=== PATIENT | male | born 1945 | race Caucasian/White ===

== ENCOUNTER 2021-02-19 07:19 | Day surgery (SDC) | payer OTHER, BC ==
[2021-02-18 11:18] VITALS: BMI 29.8
[2021-02-19] MEDS ORDERED: CIPROFLOXACIN 0.3% EYE DROPS 5 ML BOTTLE ONE (07:29)
[2021-02-19] MEDS ORDERED: CYCLOPENTOLATE 2% OPHTH SOLN 2 ML BOTTLE ONE (07:29)
[2021-02-19] MEDS ORDERED: TROPICAMIDE 1% OPHTH SOLN 15 ML BOTTLE ONE (07:29)
[2021-02-19] MEDS ORDERED: PHENYLEPHRINE 2.5% OPHTH SOLN 15 ML BOTTLE ONE (07:29)
[2021-02-19] MEDS ORDERED: MIDAZOLAM HCL 2 MG/2 ML SINGLE DOSE VIAL ONE ×2 (07:41→08:39)
[2021-02-19] MEDS ORDERED: TETRACAINE 0.5% OPHTH SOLN 2 ML BOTTLE ONE (08:43)
[2021-02-19] MEDS ORDERED: NEO/POLYMYX B SULF/DEXAMETH OPHTHALMIC 5ML BOTTLE ONE (08:43)
[2021-02-19] MEDS ORDERED: LIDOCAINE 1% P/F 10 MG/ML VIAL ONE (08:43)
[2021-02-19] MEDS ORDERED: CARBACHOL 0.01% INTRA-OCULAR 1.5 ML VIAL ONE (08:43)
[2021-02-19] MEDS ORDERED: BSS (NA/CA/MG/K) BALANCED SALT SOLUTION OPHTH SOLN 15 ML BOTTLE ONE (08:43)
[2021-02-19 09:30] VITALS: TEMP 98
[2021-02-19 09:46] VITALS: PULSE 71
[2021-02-19 09:48] VITALS: BP 116/72
== END 2021-02-19 10:20 | disposition home or self-care (01) ==
LOC: FASU 07:19
PROVIDERS: ATTEND Ophthalmology
PROC: 08RK3JZ Replacement of Left Lens with Synthetic Substitute, Percutaneous Approach (ICD-10-PCS; principal; 2021-02-19 09:03)
DX: H26.8 Other specified cataract (principal)

== ENCOUNTER 2022-09-17 17:05 | Observation (INO) | payer BC, OTHER ==
[2022-09-17] MEDS ORDERED: methylPREDNISolone NA SUCC 125 MG/2 ML VIAL IVPUSH ONE (18:06)
[2022-09-17] MEDS: ALBUTEROL SO4 2.5/IPRATROPIUM 0.5 INH SOL 3 ML VIAL.NEB. NEB SCH ×3 (18:30→19:01)
[2022-09-17] MEDS ORDERED: ALBUTEROL SO4 2.5/IPRATROPIUM 0.5 INH SOL 3 ML VIAL.NEB. NEB ONE (18:31)
[2022-09-17] MEDS ORDERED: methylPREDNISolone NA SUCC 125 MG/2 ML VIAL ONE (18:31)
[2022-09-17 18:39] LABS: VENOUS BASE EXCESS 3.7 mmol/L (-2-2); VENOUS PCO2 49.1 mmHg (38-52); VENOUS PH 7.399 (7.310-7.410)
[2022-09-17 18:47] LABS: BASO % 0.7 % (0-2.0); EOS % 1.4 % (0-4.5); HEMATOCRIT 47.9 % (35.4-49); HEMOGLOBIN 16.3 GM/dL (11.7-16.9); LYMPH % 16.2 % (8-40); MCH 30.6 pg (25.7-33.7); MCHC 34.1 g/dl (32.0-35.9); MEAN CELL VOLUME 89.7 fl (80-96); MEAN PLT VOLUME 8.3 fl (7.5-11.1); MONO % 7.5 % (3.8-10.2); NEUT % 74.2 % (42.8-82.8); PLATELET COUNT 186 10^3/uL (134-434); RBC 5.34 M/mm3 (4.00-5.60); RDW 14.6 % (11.9-15.9); WHITE BLOOD COUNT 9.5 K/mm3 (4.0-10.0)
[2022-09-17 18:56] LABS: INR 1.09 (0.83-1.09); PROTHROMBIN TIME (PATIENT) 12.6 SEC (9.7-13.0)
[2022-09-17 19:00] LABS: ACTIVATED PTT 29.8 SECONDS (25.2-36.5)
[2022-09-17 19:13] LABS: BLOOD UREA NITROGEN 16.6 mg/dL (7-18)
[2022-09-17 19:14] LABS: CALCIUM 9.4 mg/dL (8.5-10.1)
[2022-09-17 19:16] LABS: MAGNESIUM 2.2 mg/dL (1.8-2.4)
[2022-09-17 19:17] LABS: PHOSPHOROUS 3.1 mg/dL (2.5-4.9)
[2022-09-17 19:18] LABS: TOT PROT 7.3 g/dl (6.4-8.2)
[2022-09-17 19:19] LABS: BILIRUBIN,TOTAL 0.4 mg/dL (0.2-1)
[2022-09-17 20:13] LABS: N-TERMINAL BNP 29.5 pg/ml (5-450)
[2022-09-17 21:04] LABS: EPI CELLS 4 /uL (0-25.1); HYALINE CASTS 1 /uL (0-3.1); URINE APPEARANCE CLOUDY; URINE BACTERIA 3 /uL (0-1359); URINE BILIRUBIN NEGATIVE (NEGATIVE); URINE COLOR YELLOW; URINE GLUCOSE (UA) NEGATIVE (NEGATIVE); URINE KETONE TRACE (NEGATIVE); URINE LEUK ESTERASE 1+ (NEGATIVE); URINE NITRITE NEGATIVE (NEGATIVE); URINE PROTEIN NEGATIVE (NEGATIVE); URINE RBC 36 /uL (0-23.9); URINE UROBILINOGEN 0.2 mg/dL (0.2-1.0); URINE WBC 52 /uL (0-25.8)
[2022-09-17] MEDS ORDERED: ACETAMINOPHEN 325 MG TABLET (FP) PO PRN (22:48)
[2022-09-18] MEDS ORDERED: methylPREDNISolone NA SUCC 40 MG/1 ML VIAL ONE (04:57)
[2022-09-18] MEDS: methylPREDNISolone NA SUCC 40 MG/1 ML VIAL IVPUSH SCH ×2 (05:00→09:47)
[2022-09-18] MEDS ORDERED: LORazepam 1 MG TABLET PO PRN (07:03)
[2022-09-18] MEDS ORDERED: oxyCODONE HCL 5 MG TABLET PO PRN (07:03)
[2022-09-18] MEDS ORDERED: ACETAMINOPHEN 325 MG TABLET (FP) PO PRN (08:04)
[2022-09-18] MEDS: SERTRALINE HCL 50 MG TABLET (FP) PO SCH (09:47)
[2022-09-18 09:52] LABS: HEMATOCRIT 44.6 % (35.4-49); HEMOGLOBIN 15.1 GM/dL (11.7-16.9); MCH 30.6 pg (25.7-33.7); MCHC 33.9 g/dl (32.0-35.9); MEAN CELL VOLUME 90.3 fl (80-96); MEAN PLT VOLUME 8.5 fl (7.5-11.1); PLATELET COUNT 191 10^3/uL (134-434); RBC 4.94 M/mm3 (4.00-5.60); RDW 14.5 % (11.9-15.9); WHITE BLOOD COUNT 10.3 K/mm3 (4.0-10.0)
[2022-09-18 10:59] LABS: CALCIUM 9.5 mg/dL (8.5-10.1)
[2022-09-18 11:01] LABS: BLOOD UREA NITROGEN 20.1 mg/dL (7-18)
[2022-09-18 11:03] LABS: CREATININE 1.2 mg/dL (0.55-1.3)
[2022-09-18 11:05] LABS: ANISOCYTOSIS 0; MACROCYTOSIS 0
[2022-09-18] MEDS: HEPARIN NA (PORCINE) 5,000 UNITS/ML 1ML VIAL SQ SCH ×2 (14:12→22:40)
[2022-09-18 14:46] VITALS: BMI 27.9
[2022-09-18] MEDS: ALBUTEROL SO4 2.5/IPRATROPIUM 0.5 INH SOL 3 ML VIAL.NEB. NEB PRN (20:19)
[2022-09-19] MEDS: HEPARIN NA (PORCINE) 5,000 UNITS/ML 1ML VIAL SQ SCH ×3 (06:49→22:27)
[2022-09-19] MEDS: methylPREDNISolone NA SUCC 40 MG/1 ML VIAL IVPUSH SCH (09:55)
[2022-09-19] MEDS: SERTRALINE HCL 50 MG TABLET (FP) PO SCH (09:55)
[2022-09-19] MEDS: ALBUTEROL SO4 2.5/IPRATROPIUM 0.5 INH SOL 3 ML VIAL.NEB. NEB PRN (15:26)
[2022-09-20] MEDS: HEPARIN NA (PORCINE) 5,000 UNITS/ML 1ML VIAL SQ SCH ×3 (06:36→22:58)
[2022-09-20] MEDS: methylPREDNISolone NA SUCC 40 MG/1 ML VIAL IVPUSH SCH (10:24)
[2022-09-20] MEDS: SERTRALINE HCL 50 MG TABLET (FP) PO SCH (10:24)
[2022-09-21] MEDS: HEPARIN NA (PORCINE) 5,000 UNITS/ML 1ML VIAL SQ SCH ×2 (05:18→16:06)
[2022-09-21] MEDS ORDERED: predniSONE 20 MG TABLET (UD) PO SCH (10:00)
[2022-09-21] MEDS: SERTRALINE HCL 50 MG TABLET (FP) PO SCH (10:54)
[2022-09-21 15:58] VITALS: BP 141/83; PULSE 89; RESP 18; TEMP 9831
== END 2022-09-21 18:21 | disposition home or self-care (01) ==
LOC: JER 17:05 → JERBED 20:51 → J8W 09-18 05:51
PROVIDERS: ADMIT Internal Medicine; ATTEND Family Medicine
PROC: 3E033GC Introduction of Other Therapeutic Substance into Peripheral Vein, Percutaneous Approach (ICD-10-PCS; principal; 2022-09-17)
PROC: 3E0F7GC Introduction of Other Therapeutic Substance into Respiratory Tract, Via Natural or Artificial Opening (ICD-10-PCS; 2022-09-17)
DX: J44.1 Chronic obstructive pulmonary disease with (acute) exacerbation (principal); E78.5 Hyperlipidemia, unspecified; I10 Essential (primary) hypertension; R29.6 Repeated falls; R42 Dizziness and giddiness; F32.A Depression, unspecified; R26.81 Unsteadiness on feet; F41.9 Anxiety disorder, unspecified; R53.1 Weakness; Z63.4 Disappearance and death of family member
CPT/HCPCS: 0241U-QW; 36415; 70450-TC; 71045-TC-FY; 71250-TC; 72125-TC; 76604; 80048; 80053; 81003; 82607; 82803; 83735; 83880; 84100; 84484; 85025; 85610; 85730; 86850; 86900; 86901; 87086; 93005; 93010; 93308; 94640; 94761; 96374; 96375; 97116-GP; 97161-GP; 99285-25; G0378; J1644

== ENCOUNTER 2023-11-23 09:04 | Inpatient (IN) | payer OTHER ==
[2023-11-23 09:55] LABS: HEMATOCRIT 50.7 % (35.4-49); HEMOGLOBIN 17.1 G/dL (11.7-16.9); MCH 30.8 pg (25.7-33.7); MCHC 33.7 g/dl (32.0-35.9); MEAN CELL VOLUME 91.4 fl (80-96); MEAN PLT VOLUME 8.4 fl (7.5-11.1); PLATELET COUNT 147.4 10^3/uL (134-434); RBC 5.55 10^6/uL (4.00-5.60); RDW 14.3 % (11.9-15.9); WHITE BLOOD COUNT 8.6 10^3/uL (4.0-10.8)
[2023-11-23 09:59] LABS: ALBUMIN 4.7 g/dl (3.4-5.0); BILIRUBIN,TOTAL 0.6 mg/dl (0.2-1); CALCIUM 9.6 mg/dl (8.5-10.1); CREATININE 1.2 mg/dl (0.6-1.3); MAGNESIUM 2.3 mg/dL (1.8-2.4); POTASSIUM 3.7 mmol/L (3.5-5.1); TOT PROT 7.5 g/dl (6.4-8.2)
[2023-11-23 10:00] LABS: PLATELET ESTIMATE ADEQUATE
[2023-11-23 13:36] VITALS: BMI 26.6
[2023-11-23] MEDS: NICOTINE 21 MG/24 HOURS TOPICAL PATCH TD ONE (13:42)
[2023-11-23] MEDS: LORazepam 1 MG TABLET PO PRN (18:26)
[2023-11-23 19:06] LABS: EPITHELIAL CELLS 0-5 /hpf; URINE HYALINE CAST 0-1 /lpf
[2023-11-24] MEDS: ACETAMINOPHEN 325 MG TABLET (FP) PO PRN (03:40)
[2023-11-24] MEDS: TRIAMTERENE AND HCTZ - 37.5 MG/25 MG CAPSULE PO SCH (09:28)
[2023-11-24] MEDS: FLUoxetine HCL 20 MG CAPSULE PO SCH (09:28)
[2023-11-24] MEDS: CEFTRIAXONE 1 GM in DEXTROSE 5%-WATER - 50 ML IVPB SCH (13:27)
[2023-11-24 22:18] VITALS: RESP 18
[2023-11-25 08:01] LABS: HEMOGLOBIN 16.1 G/dL (11.7-16.9); MCH 31.6 pg (25.7-33.7); MCHC 34.2 g/dl (32.0-35.9); MEAN CELL VOLUME 92.6 fl (80-96); MEAN PLT VOLUME 8.4 fl (7.5-11.1); PLATELET COUNT 145.5 10^3/uL (134-434); RBC 5.08 10^6/uL (4.00-5.60); RDW 14.3 % (11.9-15.9); WHITE BLOOD COUNT 7.9 10^3/uL (4.0-10.8)
[2023-11-25 08:34] LABS: CALCIUM 9.8 mg/dl (8.5-10.1); POTASSIUM 3.6 mmol/L (3.5-5.1)
[2023-11-25] MEDS: CEFTRIAXONE 1 GM in DEXTROSE 5%-WATER - 50 ML IVPB ONE (09:31)
[2023-11-25 09:59] VITALS: BP 126/77; PULSE 73; TEMP 97.3
== END 2023-11-25 11:42 | disposition home health service (06) | DRG 948 ==
LOC: FER 09:04 → FM/S 09:53
PROVIDERS: ADMIT Family Medicine; ATTEND Family Medicine
DX: R53.1 Weakness (principal); J44.9 Chronic obstructive pulmonary disease, unspecified; I10 Essential (primary) hypertension; E78.5 Hyperlipidemia, unspecified; F17.200 Nicotine dependence, unspecified, uncomplicated; F41.8 Other specified anxiety disorders; R26.2 Difficulty in walking, not elsewhere classified; R62.7 Adult failure to thrive; Z68.26 Body mass index [BMI] 26.0-26.9, adult
CPT/HCPCS: 0241U-QW; 36415; 70450-TC; 71045-TC-FY; 71250-TC; 72125-TC; 73070-TC-RT-FY; 80048; 80053; 81003; 81015; 83735; 84484; 85025; 85027; 87086; 93005; 97116-GP; 97161-GP; 99285-25

== ENCOUNTER 2024-06-04 10:57 | Inpatient (IN) | payer OTHER ==
[2024-06-04 11:07] VITALS: BMI 28.7
[2024-06-04 12:25] LABS: BASO % 0.9 % (0-2.0); EOS % 1.7 % (0-4.5); HEMATOCRIT 47.6 % (35.4-49); HEMOGLOBIN 16.2 GM/dL (11.7-16.9); LYMPH % 16.9 % (8-40); MCH 30.3 pg (25.7-33.7); MEAN CELL VOLUME 89.1 fl (80-96); MONO % 7.1 % (3.8-10.2); NEUT % 73.4 % (42.8-82.8); PLATELET COUNT 199 10^3/uL (134-434); RBC 5.34 M/mm3 (4.00-5.60); RDW 14.5 % (11.9-15.9); WHITE BLOOD COUNT 10.6 K/mm3 (4.0-10.0)
[2024-06-04 12:40] LABS: POTASSIUM 3.6 mmol/L (3.5-5.1)
[2024-06-04 12:42] LABS: ALBUMIN 3.7 g/dl (3.4-5.0); BLOOD UREA NITROGEN 21.9 mg/dL (7-18); CALCIUM 9.6 mg/dL (8.5-10.1)
[2024-06-04 12:45] LABS: CREATININE 1.3 mg/dL (0.55-1.3)
[2024-06-04 12:47] LABS: BILIRUBIN,TOTAL 0.4 mg/dL (0.2-1); TOT PROT 7.2 g/dl (6.4-8.2)
[2024-06-04 13:06] LABS: EPI CELLS 3 /uL (0-25.1); HYALINE CASTS 0 /uL (0-3.1); PH,URINE 5.5 (5.0-8.0); URINE APPEARANCE CLEAR; URINE BACTERIA 8 /uL (0-1359); URINE BILIRUBIN NEGATIVE (NEGATIVE); URINE COLOR YELLOW; URINE GLUCOSE (UA) NEGATIVE (NEGATIVE); URINE KETONE NEGATIVE (NEGATIVE); URINE LEUK ESTERASE 1+ (NEGATIVE); URINE NITRITE NEGATIVE (NEGATIVE); URINE PROTEIN NEGATIVE (NEGATIVE); URINE RBC 16 /uL (0-23.9); URINE UROBILINOGEN 0.2 mg/dL (0.2-1.0); URINE WBC 19 /uL (0-25.8)
[2024-06-04] MEDS: CEFTRIAXONE 1 GM in DEXTROSE 5%-WATER - 100 ML IVPB ONE (13:11)
[2024-06-04] MEDS ORDERED: CEFTRIAXONE 1 GM/50 ML BAG ONE (13:11)
[2024-06-04] MEDS: ATORVASTATIN CA 10 MG TABLET (FP) PO SCH (21:59)
[2024-06-04] MEDS: LORazepam 1 MG TABLET PO SCH (21:59)
[2024-06-04] MEDS ORDERED: PATIENT'S OWN MEDICATION (NON-FORMULARY) (Ezetimibe/Simvastatin [Ezetimibe-Simvastatin 10- PO SCH (22:00)
[2024-06-04] MEDS: ACETAMINOPHEN 500 MG TABLET (FP) PO ONE (23:23)
[2024-06-04] MEDS: MELATONIN 5 MG TABLETS PO PRN (23:24)
[2024-06-05] MEDS ORDERED: VRAYLAR 1.5 MG PO SCH (10:00)
[2024-06-05] MEDS: FLUoxetine HCL 20 MG CAPSULE PO SCH (10:49)
[2024-06-05] MEDS: TRIAMTERENE AND HCTZ - 37.5 MG/25 MG CAPSULE PO SCH (10:49)
[2024-06-05] MEDS: TRIAMCINOLONE ACET 0.1% CREAM 15 GM TUBE TP SCH (10:49)
[2024-06-05] MEDS: ENOXAPARIN NA (PORCINE) 40 MG/0.4 ML DISP.SYRIN SQ SCH (10:49)
[2024-06-05] MEDS: EZETIMIBE 10 MG TABLET (FP) PO SCH (10:49)
[2024-06-05 11:25] LABS: BASO % 0.9 % (0-2.0); EOS % 1.9 % (0-4.5); HEMATOCRIT 42.9 % (35.4-49); HEMOGLOBIN 15.1 GM/dL (11.7-16.9); LYMPH % 25.8 % (8-40); MCH 31.1 pg (25.7-33.7); MCHC 35.2 g/dl (32.0-35.9); MEAN CELL VOLUME 88.5 fl (80-96); MEAN PLT VOLUME 8.2 fl (7.5-11.1); MONO % 7.5 % (3.8-10.2); NEUT % 63.9 % (42.8-82.8); PLATELET COUNT 201 10^3/uL (134-434); RBC 4.85 M/mm3 (4.00-5.60); RDW 14.7 % (11.9-15.9)
[2024-06-05 11:54] LABS: POTASSIUM 3.4 mmol/L (3.5-5.1)
[2024-06-05 11:56] LABS: ALBUMIN 3.5 g/dl (3.4-5.0); BLOOD UREA NITROGEN 19.4 mg/dL (7-18); CALCIUM 8.8 mg/dL (8.5-10.1)
[2024-06-05 11:59] LABS: CREATININE 1.2 mg/dL (0.55-1.3)
[2024-06-05 12:01] LABS: BILIRUBIN,TOTAL 0.4 mg/dL (0.2-1); TOT PROT 6.7 g/dl (6.4-8.2)
[2024-06-05] MEDS: VANCOMYCIN/WATER 1250 MG 1,250 MG/250 ML BAG IVPB SCH (16:03)
[2024-06-06] MEDS: ALBUTEROL SO4 2.5/IPRATROPIUM 0.5 INH SOL 3 ML VIAL.NEB. NEB SCH (11:33)
[2024-06-06] MEDS: CARBIDOPA/LEVODOPA 25/100 TABLET (FP) PO SCH (21:20)
[2024-06-07] MEDS ORDERED: ALBUTEROL SO4 0.083% IH SOL 2.5 MG/3 ML VIAL.NEB. NEB PRN (12:34)
[2024-06-08] MEDS: diphenhydrAMINE HCL 25 MG CAPSULE (FP) PO ONE (04:21)
[2024-06-08] MEDS: NYSTATIN POWDER 100,000 UNITS/GM - 15 GM TOPICAL POWDER TP SCH (10:37)
[2024-06-09 03:52] VITALS: BP 106/76; PULSE 73; RESP 20; TEMP 97.5
== END 2024-06-09 09:33 | DRG 57 ==
LOC: JER 10:57 → JERBED 12:43 → J6S 15:55 → OBSVTOIN 17:48 → J6S 06-06 17:10
PROVIDERS: ADMIT Family Medicine; ATTEND Family Medicine
DX: G20.A1 Parkinson's disease without dyskinesia, without mention of fluctuations (principal); J44.9 Chronic obstructive pulmonary disease, unspecified; I10 Essential (primary) hypertension; E78.5 Hyperlipidemia, unspecified; F41.9 Anxiety disorder, unspecified; F32.A Depression, unspecified; R29.6 Repeated falls; I25.10 Atherosclerotic heart disease of native coronary artery without angina pectoris; R26.81 Unsteadiness on feet; R21 Rash and other nonspecific skin eruption; Z72.0 Tobacco use
CPT/HCPCS: 36415; 70450-TC; 70551-TC; 71045-TC-FY; 80053; 81003; 82962; 85025; 93005; 93010; 94640; 97116-GP; 97162-GP; 99285-25; G0378